=== PATIENT | female | born 1990 | race Caucasian/White ===

== ENCOUNTER 2016-07-15 08:19 | Emergency (ER) | payer OTHER ==
[~2016-07-15] VITALS: Wt 77.0 kg
[~2016-07-15 08:19] MED LIST: IBUP-1542 PO; NITR100C73 PO; OMEP40CA3 PO; ONDA4TAB8 PO; PHEN-616 PO; RANI150T9 PO; TRAM50TA2 PO
[2016-07-15 09:17] LABS: URINE BLOOD (Dip) POC 3+ (NEGATIVE)
[2016-07-15] MEDS ORDERED: NITR-58 PO (09:24)
[2016-07-15] MEDS ORDERED: PHEN-537 PO (09:24)
--- NOTE | 2016-07-15 09:29 | ERD ---
ER Documentation Chief Complaint Date/Time DATE: 07/15/16 TIME: 09:26 Chief Complaint dysuria for 1 wk. hematuria intermittent for a week. feels chills HPI This is a 25-year-old female who presents to the ED with dysuria, hematuria, suprapubic tenderness for 1 week on and off. She states that she has urgency. She denies fever or chills. Denies CVA tenderness. She does have a history of UTIs in the past. Denies abdominal pain, nausea, vomiting or diarrhea. Denies headache or dizziness. Denies leg pain or swelling. Denies chest pain, cough, shortness of breath or difficulty breathing. States that her last normal menstrual period was 12/2015. She states that she has irregular periods. She is currently sexually active monogamous relationship with her boyfriend of 5 years. ROS All systems reviewed and are negative except as per history of present illness. Medications Home Meds Active Scripts Phenazopyridine Hcl* (Pyridium*) 100 Mg Tab, 100 MG PO TID Y for URINARY PAIN, # 8 TAB Prov:HAFSA CASTELLON PA-C 07/15/16 Nitrofurantoin Monohyd Macrocr* (Macrobid*) 100 Mg Capsr, 100 MG PO BID for 5 Days, CAP Prov:HAFSA CASTELLON PA-C 07/15/16 Tramadol HCl (Tramadol HCl) 50 Mg Tablet, 50 MG PO Q6 Y for SEVERE PAIN LEVEL 7- 10, #20 TAB Prov:WALI TUTTLE NP 05/01/16 Ibuprofen* (Motrin*) 600 Mg Tab, 600 MG PO Q6H Y for PAIN AND OR ELEVATED TEMP, #30 TAB Prov:WALI TUTTLE NP 05/01/16 Ondansetron Hcl* (Zofran*) 4 Mg Tablet, 4 MG PO Q8H Y for NAUSEA AND/OR VOMITING , #12 TAB Prov:ESTHELA WOOD DO 12/15/15 Ranitidine Hcl* (Zantac*) 150 Mg Tablet, 150 MG PO BID Y for EPIGASTRIC PAIN, # 30 TAB Prov:FAIZA ALONZO NP 12/14/15 Omeprazole* (Prilosec*) 40 Mg Capsule., 40 MG PO DAILY for 14 Days, CAP Prov:FAIZA ALONZO [employer] 12/14/15 Reported Medications Phenazopyridine Hcl* (Phenazopyridine Hcl*) 200 Mg Tablet, 200 MG PO TID Y for DYSURIA, TAB 12/26/13 Nitrofurantoin Macrocrystal* (Nitrofurantoin Macrocrystal*) 100 Mg Capsule, 100 MG PO BID, CAP 12/26/13 Allergies Allergies: Coded Allergies: No Known Allergies (Verified Allergy, Mild, 12/31/13) PMhx/Soc History of Surgery: No Anesthesia Reaction: No Hx Neurological Disorder: No Hx Respiratory Disorders: No Hx Cardiac Disorders: No Hx Psychiatric Problems: No Hx Miscellaneous Medical Probl: Yes (Abdominal Pain) Hx Alcohol Use: No Hx Substance Use: Yes (Med Marijuana) Hx Tobacco Use: No Smoking Status: Never smoker Physical Exam Vitals Vital Signs Date Time Temp Pulse Resp B/P Pulse Ox O2 Delivery O2 Flow Rate FiO2 07/15/16 08:21 98.6 85 21 130/76 100 Physical Exam GENERAL: Well-developed, well-nourished female. Appears in no acute distress. LUNG: Clear to auscultation bilaterally. No rhonchi, wheezing, rales or coarse breath sounds. HEART: Regular rate and rhythm. No murmurs, rubs or gallops. ABDOMEN: No scars, ecchymosis or rashes noted. Soft, nontender, and nondistended. Positive bowel sounds in all four quadrants. No rebound tenderness , no guarding. (-) McBurneys point tenderness. No CVA tenderness. Suprapubic tenderness SKIN: Normal color. Warm and dry. No rashes or lesions. Capillary refill < 2 seconds Results 24 hrs Laboratory Tests Test 07/15/16 09:19 Bedside Urine Blood 3+ Bedside Urine Glucose (UA) Negative Bedside Urine Ketones (LAB) Trace Bedside Urine Leukocyte Esterase (L 3+ Bedside Urine Nitrite (LAB) Negative Bedside Urine Protein (LAB) 1+ Bedside Urine pH (LAB) 5.5 Procedures/MDM ER COURSE: I kept the patient and/or family informed of laboratory and diagnostic imaging results throughout the emergency room course. Urinalysis shows 3+ leukocytes, 3+ hemoglobin and no nitrites. Urine test is negative MEDICAL DECISION MAKING: This is a 25-year-old female who presents with dysuria, hematuria and urgency. Vital signs were reviewed. Patient is afebrile. Patient is not hypoxic. Patient is not toxic or ill-appearing. Temperature 98.6. Patient has a UTI. Low suspicion for ovarian torsion, PID, tuboovarian abscess, ectopic , bowel obstruction, pyelonephritis, appendicitis, cervicitis. Patient does not have pelvic pain and I have low suspicion for ovarian torsion and I do not think a pelvic ultrasound is necessary at this time. DISCHARGE: At this time, patient is stable for discharge and outpatient management with no new complaints during the ER course. Patient was sent home with Pyridium and Macrobid.. Patient will be discharged home with instructions to recheck for new or worsening symptoms such as fever, nausea, weakness, LOC and to follow up with primary care in the next 1-2 days. Patient was advised to return to the ER for any new or worsening symptoms. Plan was discussed and patient and/or family understands and agrees. Home instructions were given. Departure Diagnosis: Primary Impression: UTI (urinary tract infection) Urinary tract infection type: site unspecified Hematuria presence: with hematuria Qualified Code: N39.0 - Urinary tract infection with hematuria, site unspecified Condition: Stable Patient Instructions: Understanding Urinary Tract Infections (UTIs) Additional Instructions: Call your primary care doctor TOMORROW for an appointment during the next 1-2 days.See the doctor sooner or return here if your condition worsens before your appointment time. HAFSA CASTELLON PA-C Jul 15, 2016 09:29
== END 2016-07-15 09:35 | disposition home or self-care (01) ==
LOC: FTE 08:19
DX: N39.0 Urinary tract infection, site not specified (principal)
CPT/HCPCS: 81003; Z7502; 99283

== ENCOUNTER 2017-01-29 12:10 | Emergency (ER) | payer MEDICAID, OTHER ==
[~2017-01-29] VITALS: Wt 61.4 kg
[~2017-01-29 12:10] MED LIST changes: +NITR-58 PO; +PHEN-537 PO
[2017-01-29] MEDS ORDERED: SOD CHLORIDE 0.9% 1,000 ML IV STA (13:26)
[2017-01-29] MEDS ORDERED: METOCLOPRAMIDE 10 MG INJ IV STA (13:26)
[2017-01-29 14:05] LABS: ADD UMIC YES; UR AMORPHOUS CRYSTAL FEW /HPF (NONE SEEN); UR ASCORBIC ACID NEGATIVE (NEGATIVE); UR BILIRUBIN (Dip) NEGATIVE (NEGATIVE); UR BLOOD (Dip) NEGATIVE (NEGATIVE); UR CLARITY CLOUDY (CLEAR); UR COLOR YELLOW (YELLOW); UR GLUCOSE (Dip) NEGATIVE (NEGATIVE); UR KETONES (Dip) 1+ mg/dL (NEGATIVE); UR LEUKOCYTE ESTERASE (Dip) NEGATIVE Leu/ul (NEGATIVE); UR MUCUS FEW /HPF (NONE SEEN); UR NITRITE (Dip) NEGATIVE (NEGATIVE); UR RBC 2 /HPF (0-5); UR SQUAMOUS EPITHELIAL CELL FEW /HPF (FEW); UR TOTAL PROTEIN (Dip) NEGATIVE (NEGATIVE); UR UROBILINOGEN (Dip) 1+ mg/dL (NEGATIVE); UR WBC CLUMPS FEW /HPF (NONE SEEN)
[2017-01-29 14:46] LABS: BASOPHILS % 0.3 % (0.0-2.0); EOSINOPHILS % 0.2 % (0.0-7.0); HEMATOCRIT 36.7 % (37.0-47.0); HEMOGLOBIN 12.4 g/dl (12.0-16.0); LYMPHOCYTES # 1.7 10^3/ul (0.8-2.9); LYMPHOCYTES % 16.5 % (15.0-51.0); MEAN CORPUSCULAR HEMOGLOBIN 27.7 pg (29.0-33.0); MEAN CORPUSCULAR HGB CONC 33.8 g/dl (32.0-37.0); MEAN CORPUSCULAR VOLUME 82.1 fl (82.0-101.0); MEAN PLATELET VOLUME 9.1 fl (7.4-10.4); MONOCYTE # 0.5 10^3/ul (0.3-0.9); MONOCYTES % 4.9 % (0.0-11.0); NEUTROPHILS % 77.8 % (39.0-77.0); PLATELET COUNT 350 10^3/UL (140-415); RED BLOOD COUNT 4.47 10^6/ul (4.20-5.40); WHITE BLOOD COUNT 10.5 10^3/ul (4.8-10.8)
[2017-01-29 14:54] LABS: BILIRUBIN,INDIRECT 0.4 mg/dl (0-1.1); BILIRUBIN,TOTAL 0.4 mg/dl (0.2-1.3); CALCIUM 9.5 mg/dl (8.4-10.2); CREATININE 0.54 mg/dl (0.44-1.00); POTASSIUM 3.7 mmol/L (3.5-5.1)
[2017-01-29 14:56] LABS: ALBUMIN 4.2 g/dl (3.3-4.9); ALBUMIN/GLOBULIN RATIO 1.16; TOTAL PROTEIN 7.8 g/dl (6.1-8.1)
[2017-01-29] MEDS ORDERED: SOD CHLORIDE 0.9% 1,000 ML IV ONE (15:31)
[2017-01-29] MEDS ORDERED: METO10TA92 PO (15:56)
--- NOTE | 2017-01-29 15:59 | ERD ---
ER Documentation Chief Complaint Date/Time DATE: 01/29/17 TIME: 15:57 Chief Complaint n/v, 9 wks preg HPI This 26-year-old female presents with vomiting for last 3 days. She has had nausea and occasional vomiting since early but it is worse this week. She has diarrhea, fevers, dysuria, vaginal bleeding or abdominal pain. She has had a ultrasound was told she has a normal-appearing intrauterine . She is referred by OB for evaluation for IV fluids after consulting with them over the phone. ROS All systems reviewed and are negative except as per history of present illness. Medications Home Meds Active Scripts Metoclopramide* (Reglan*) 10 Mg Tablet, 10 MG PO Q6 Y for NAUSEA AND/OR VOMITING , #20 TAB Prov:RAVI BRYANT MD 01/29/17 Phenazopyridine Hcl* (Pyridium*) 100 Mg Tab, 100 MG PO TID Y for URINARY PAIN, # 8 TAB Prov:HAFSA CASTELLON PA-C 07/15/16 Nitrofurantoin Monohyd Macrocr* (Macrobid*) 100 Mg Capsr, 100 MG PO BID for 5 Days, CAP Prov:HAFSA CASTELLON-Don 07/15/16 Tramadol HCl (Tramadol HCl) 50 Mg Tablet, 50 MG PO Q6 Y for SEVERE PAIN LEVEL 7- 10, #20 TAB Prov:WALI TUTTLE NP 05/01/16 Ibuprofen* (Motrin*) 600 Mg Tab, 600 MG PO Q6H Y for PAIN AND OR ELEVATED TEMP, #30 TAB Prov:WALI TUTTLE NP 05/01/16 Ondansetron Hcl* (Zofran*) 4 Mg Tablet, 4 MG PO Q8H Y for NAUSEA AND/OR VOMITING , #12 TAB Prov:ESTHELA WODO DO 12/15/15 Ranitidine Hcl* (Zantac*) 150 Mg Tablet, 150 MG PO BID Y for EPIGASTRIC PAIN, # 30 TAB Prov:FAIZA ALONZO NP 12/14/15 Omeprazole* (Prilosec*) 40 Mg Capsule., 40 MG PO DAILY for 14 Days, CAP Prov:FAIZA ALONZO NP 12/14/15 Reported Medications Phenazopyridine Hcl* (Phenazopyridine Hcl*) 200 Mg Tablet, 200 MG PO TID Y for DYSURIA, TAB 12/26/13 Nitrofurantoin Macrocrystal* (Nitrofurantoin Macrocrystal*) 100 Mg Capsule, 100 MG PO BID, CAP 12/26/13 Allergies Allergies: Coded Allergies: No Known Allergies (Verified Allergy, Mild, 12/31/13) PMhx/Soc History of Surgery: No Anesthesia Reaction: No Hx Neurological Disorder: No Hx Respiratory Disorders: No Hx Cardiac Disorders: No Hx Psychiatric Problems: No Hx Miscellaneous Medical Probl: Yes (Abdominal Pain) Hx Alcohol Use: No Hx Substance Use: Yes (Med Marijuana) Hx Tobacco Use: No Smoking Status: Never smoker Physical Exam Vitals Vital Signs Date Time Temp Pulse Resp B/P Pulse Ox O2 Delivery O2 Flow Rate FiO2 01/29/17 12:14 98.5 63 20 107/63 97 Physical Exam Const: [] Alert, pleasant, [id number]. Head: Atraumatic Eyes: Normal Conjunctiva ENT: Normal External Ears, Nose and Mouth. Neck: Full range of motion..~ No meningismus. Resp: Clear to auscultation bilaterally Cardio: Regular rate and rhythm, no murmurs Abd: Soft, non tender, non distended. Normal bowel sounds Skin: No petechiae or rashes Back: No midline or flank tenderness Ext: No cyanosis, or edema Neur: Awake and alert Psych: Normal Mood and Affect Result Diagram: 01/29/17 1355 01/29/17 1355 Results 24 hrs Laboratory Tests Test 01/29/17 13:40 01/29/17 13:55 Urine Color YELLOW Urine Clarity CLOUDY Urine pH 7.0 Urine Specific [place] 1.020 Urine Ketones 1+mg/dL Urine Nitrite NEGATIVEmg/dL Urine Bilirubin NEGATIVEmg/dL Urine Urobilinogen 1+mg/dL Urine Leukocyte Esterase NEGATIVELeu/ul Urine Microscopic RBC 2/HPF Urine Microscopic WBC 7/HPF Urine Squamous Epithelial Cells FEW/HPF Urine Amorphous Crystals FEW/HPF Urine Mucus FEW/HPF Urine Hemoglobin NEGATIVEmg/dL Urine Glucose NEGATIVEmg/dL Urine Total Protein NEGATIVEmg/dl White Blood Count 10.510^3/ul Red Blood Count 4.4710^6/ul Hemoglobin 12.4g/dl Hematocrit 36.7% Mean Corpuscular Volume 82.1fl Mean Corpuscular Hemoglobin 27.7pg Mean Corpuscular Hemoglobin Concent 33.8g/dl Red Cell Distribution Width 13.0% Platelet Count 89296^3/UL Mean Platelet Volume 9.1fl Neutrophils % 77.8% Lymphocytes % 16.5% Monocytes % 4.9% Eosinophils % 0.2% Basophils % 0.3% Nucleated Red Blood Cells % 0.0/100WBC Neutrophils # (Manual) 810^3/ul Lymphocytes # 1.710^3/ul Monocytes # 0.510^3/ul Eosinophils # 0.010^3/ul Basophils # 0.010^3/ul Nucleated Red Blood Cells # 0.010^3/ul Sodium Level 141mmol/L Potassium Level 3.7mmol/L Chloride Level 98mmol/L Carbon Dioxide Level 26mmol/L Anion Gap 21 Blood Urea Nitrogen 8mg/dl Creatinine 0.54mg/dl Glucose Level 83mg/dl Calcium Level 9.5mg/dl Total Bilirubin 0.4mg/dl Direct Bilirubin 0.00mg/dl Indirect Bilirubin 0.4mg/dl Aspartate Amino Transf (AST/SGOT) 24IU/L Alanine Aminotransferase (ALT/SGPT) 24IU/L Alkaline Phosphatase 56IU/L Total Protein 7.8g/dl Albumin 4.2g/dl Globulin 3.60g/dl Albumin/Globulin Ratio 1.16 Lipase 170U/L Current Medications Medications (Trade) Dose Ordered Sig/Neil Route PRN Reason Start Time Stop Time Status Last Admin Dose Admin Sodium Chloride (NS) 1,000 ml @ 1,000 mls/hr Q1H STAT IV 01/29/17 13:26 01/29/17 14:25 DC 01/29/17 14:03 Metoclopramide HCl 10 mg 10 mg ONCE STAT IV 01/29/17 13:26 01/29/17 13:28 DC 01/29/17 14:02 Sodium Chloride (NS) 1,000 ml @ 0 mls/hr Q0M ONCE IV 01/29/17 15:31 01/29/17 15:34 DC 01/29/17 15:37 Procedures/MDM IV was obtained patient was given 2 L normal saline IV. Patient was given Reglan 10 mg IV, CBC and CMP and lipase showed no significant acute abnormalities urine shows ketones and is slightly concentrated otherwise no leukocytes, nitrates and glucose. Patient felt better after observation and treatment. Patient presents with vomiting associated with without findings of obstruction, symptoms of vaginal bleeding, abdominal pain, signs or symptoms to suggest appendicitis, acute abdomen, UTI, additional causes of presenting complaints. She will discharged home with a short course of Reglan and further observation and OB follow-up. The patient was stable with no new complaints during the ER course. Clinically, there is no current evidence to suggest meningitis, sepsis, acute abdomen, pneumonia, acute coronary syndrome, pulmonary embolism, or any other emergent condition appearing to require further evaluation or hospitalization. The patient should certainly return for any new or worsening symptoms per the aftercare instructions. They should otherwise follow-up with her primary care doctor for reevaluation this week. Departure Diagnosis: Primary Impression: Nausea and vomiting Vomiting type: unspecified Vomiting Intractability: unspecified Qualified Code: R11.2 - Nausea and vomiting, intractability of vomiting not specified, unspecified vomiting type Condition: Stable Patient Instructions: Nausea and Vomiting-Adult Additional Instructions: Recheck for bleeding, abdominal pain, fevers, vomiting despite treatment, new worsening symptoms or OB provider. RAVI BRYANT MD Jan 29, 2017 15:56
[2017-01-29 16:59] VITALS: BP 116/57; PULSE 76; RESP 20; TEMP 98.5
== END 2017-01-29 17:00 | disposition home or self-care (01) ==
LOC: FTE 12:10
DX: O21.9 Vomiting of pregnancy, unspecified (principal); Z3A.09 9 weeks gestation of pregnancy
CPT/HCPCS: 36415; 80053; 81001; 83690; 85025; 96361; 96374; J2765; J7030; Z7502